=== PATIENT | female | born 1980 | race Caucasian/White ===

== ENCOUNTER 2017-08-26 10:00 | Emergency (ER) | payer OTHER, MEDICAID ==
[~2017-08-26] VITALS: Ht 162.6 cm; Wt 70.3 kg
[2017-08-26 10:12] VITALS: Ht 162.6 cm; Wt 70.3 kg
[2017-08-26 11:02] VITALS: BP 155/58
== END 2017-08-26 11:02 | disposition home or self-care (01) ==
LOC: ED 10:00
DX: J20.9 Acute bronchitis, unspecified (principal); F43.0 Acute stress reaction; R03.0 Elevated blood-pressure reading, without diagnosis of hypertension
CPT/HCPCS: J7613; J7644; Q0092